=== PATIENT | female | born 1940 | race Caucasian/White ===

== ENCOUNTER 2017-01-27 13:49 | Emergency (ER) | payer MEDICARE, SELFPAY ==
[~2017-01-27 13:49] MED LIST: ACCU-CHEK1 EAC1 MC; ADVAIR 100-501 EACH INH; ALBUTEROL IN200 PUFF INH; ALBUTEROL0.63 MG/3 INH; ALBUTEROL0.63 MG/3 NEB; ALBUTEROL2.5 MG/3 M IH; ALLERGY10 MG PO; AMBIEN10 MG PO; AMOXICILLIN500 MG PO; ARICEPT10 MG PO; ARICEPT23 MG PO; ARICEPT5 MG PO; AROMASIN25 MG PO; ATROVENT2.5 ML NEB; BACTRIM 400-801 EACH PO; CARAFATE1 GM PO; CARDIZEM30 MG PO; CEFPROZIL500 MG PO; CETIRIZINE HCL10 MG PO; CHILDRENS CHEWA81 MG PO; CLOPIDOGREL75 MG PO; COLACE100 MG PO; COZAAR100 MG PO; DILTIAZEM 12HR90 MG PO; DONEPEZIL HCL10 MG PO; DULERA 200 MCG8.8 GM INH; DUONEB 2.5-0.5MG3 ML NEB; FEOSOL325 MG PO; FERROUS SULFAT325 MG PO; FISH OIL 1,0001 EAC1 PO; FISH OIL 1,0001 EAC2 PO; FLAGYL500 MG PO; FOLIC ACID1 MG PO; GENTAMICIN SULFA5 ML OP; GLUCOPHAGE500 MG PO; HYDRALAZINE HCL10 MG PO; HYDROCODON-ACE1 EAC2 PO; HYDROCODON-ACE1 EAC6 PO; K-DUR20 MEQ PO; LAMISIL250 MG PO; LASIX20 MG PO; LASIX40 MG PO; LEVAQUIN500 MG PO; LEVAQUIN750 MG PO; LIDODERM700 MG TP; LYRICA200 MG PO; MAGOX 400400 MG PO; NAMENDA XR21 MG PO; NAMENDA XR28 MG PO; NAMENDA10 MG PO; NEO OP; NITROQUICK0.4 MG SL; OMEGA 3 1,0001 EACH PO; ONDANSETRON HCL4 MG PO; OXYCODON-ACETA1 EAC1 PO; OXYCODONE HCL5 MG PO; OXYCODONE-ACET1 EACH PO; PEPCID20 MG PO; PERCOCET 10-321 EACH PO; PLAVIX75 MG PO; POLYMYXIN OP; POTASSIUM CHLO20 ME1 PO; PRILOSEC20 MG PO; RESTASIS1 EACH OP; RESTORIL15 MG PO; SULF-PRED 10-0.25 ML OP; SULFAMETHOXAZO1 EACH PO; SYNTHROID50 MCG PO; TERBINAFINE HC250 MG PO; TYLENOL325 M1 PO; ULTRAM50 MG PO; VALIUM5 MG PO; VISTARIL50 MG PO; VOLTAREN100 GM TOP; VOLTAREN100 GM TP; ZANAFLEX4 MG PO; ZEBETA5 MG PO; ZOCOR40 MG PO; ZOLOFT100 MG PO; ZYRTEC10 MG PO; [UNRECOGNIZED DRUG - OTHER] OP
[2017-01-27 15:32] LABS: ARTERIAL BLD GAS O2 SATURATION 97.8 % (94-98); ARTERIAL BLOOD GAS HCO3 27.5 mmol/L (22-26); ARTERIAL BLOOD GAS pH 7.41 (7.35-7.45)
[2017-01-27 15:33] LABS: BASO % 0.2 % (0.1-1.2); EOS # 0.1 10_X3_uL (0.0-0.4); EOS % 0.6 % (0.7-5.8); GRAN # 9.4 10_X3_uL (1.6-6.1); GRAN % 75.3 % (34.0-71.1); HEMATOCRIT 41.4 % (34-45); LYMPH % 15.7 % (19.3-51.7); MEAN CORPUSCULAR HEMOGLOBIN 29.1 pg (27.0-33.0); MEAN CORPUSCULAR HGB CONC 33.8 g/dL (32.0-36.0); MEAN CORPUSCULAR VOLUME 86.1 fL (79-95); MEAN PLATELET VOLUME 10.4 fl (7.5-11.5); MONO % 8.2 % (4.7-12.5); PLATELET COUNT 194 x10_3/uL (182-369); RED BLOOD COUNT 4.81 x10_6/uL (3.9-5.2); WHITE BLOOD COUNT 12.5 x10_3/uL (4.0-10.0)
[2017-01-27 15:50] LABS: BILIRUBIN,TOTAL 0.19 mg/dL (0.0-1.0); CALCIUM 9.9 mg/dL (8.7-10.7); CREATININE 1.1 mg/dL (0.6-1.3); TOTAL PROTEIN 7.2 gm/dL (6.4-8.2)
== END 2017-01-27 18:19 | disposition home or self-care (01) ==
LOC: EDSTATUS 13:49 → ER 13:49
PROVIDERS: Internal Medicine
DX: J44.9 Chronic obstructive pulmonary disease, unspecified (principal); R05 Cough; R06.02 Shortness of breath; G89.29 Other chronic pain; M54.2 Cervicalgia; Z79.899 Other long term (current) drug therapy; I50.9 Heart failure, unspecified; E07.9 Disorder of thyroid, unspecified
CPT/HCPCS: 36415; 36600; 71010; 80053; 80307; 82550; 82553; 82803; 83880; 85025; 93005; 96372; 96374; 99070; 99284; 99284-25

== ENCOUNTER 2017-02-08 14:06 | Inpatient (IN) | payer MEDICARE, SELFPAY ==
[~2017-02-08] VITALS: Ht 167.6 cm; Wt 92.0 kg
[2017-02-08 15:20] LABS: HEMATOCRIT 40.2 % (34-45); HEMOGLOBIN 13.5 g/dL (11.2-15.7); MEAN CORPUSCULAR HEMOGLOBIN 28.4 pg (27.0-33.0); MEAN CORPUSCULAR HGB CONC 33.6 g/dL (32.0-36.0); MEAN CORPUSCULAR VOLUME 84.6 fL (79-95); MEAN PLATELET VOLUME 10.5 fl (7.5-11.5); RED BLOOD COUNT 4.75 x10_6/uL (3.9-5.2); RED CELL DISTRIBUTION WIDTH 13.5 % (11.7-14.4); WHITE BLOOD COUNT 13.3 x10_3/uL (4.0-10.0)
[2017-02-08 15:39] LABS: ALBUMIN 3.9 gm/dL (3.4-5.0); ALKALINE PHOSPHATASE 78 U/L (50-136); ALT/SGPT 18 U/L (3.5-33.9); AST/SGOT 17 U/L (7.04-26.96); BILIRUBIN,TOTAL 0.18 mg/dL (0.0-1.0); BLOOD UREA NITROGEN 21 mg/dL (7-18); CALCIUM 9.7 mg/dL (8.7-10.7); CARBON DIOXIDE 27 mmol/L (21-32); CREATININE 1.2 mg/dL (0.6-1.3); GLUCOSE,RANDOM 134 mg/dL (70-99); POTASSIUM 3.7 mmol/L (3.5-5.1); SODIUM 139 mmol/L (136-145); TOTAL PROTEIN 6.9 gm/dL (6.4-8.2)
[2017-02-09 13:13] LABS: URINE BILIRUBIN NEGATIVE (NEGATIVE); URINE BLOOD TRACE (NEGATIVE); URINE GLUCOSE (UA) NORMAL (NORMAL); URINE KETONE NEGATIVE (NEGATIVE); URINE LEUKOCYTE ESTERASE 1+ (NEGATIVE); URINE NITRATE NEGATIVE (NEGATIVE); URINE PROTEIN TRACE (NEGATIVE); UROBILINOGEN NORMAL mg/dL (<1.0)
[2017-02-09 13:50] LABS: URINE BACTERIA 2+ (NONE SEEN); URINE RBC 0-5 /[HPF] (0-2); URINE SQUAMOUS EPITHELIAL CELL 0-10 /[HPF] (NONE SEEN)
[2017-02-10 06:48] LABS: HEMATOCRIT 39.9 % (34-45); HEMOGLOBIN 13.6 g/dL (11.2-15.7); MEAN CORPUSCULAR HEMOGLOBIN 28.8 pg (27.0-33.0); MEAN CORPUSCULAR HGB CONC 34.1 g/dL (32.0-36.0); MEAN CORPUSCULAR VOLUME 84.4 fL (79-95); MEAN PLATELET VOLUME 10.7 fl (7.5-11.5); RED BLOOD COUNT 4.73 x10_6/uL (3.9-5.2); RED CELL DISTRIBUTION WIDTH 13.6 % (11.7-14.4); WHITE BLOOD COUNT 14.1 x10_3/uL (4.0-10.0)
[2017-02-10 07:03] LABS: BILIRUBIN,TOTAL 0.17 mg/dL (0.0-1.0); CALCIUM 10.1 mg/dL (8.7-10.7); CREATININE 1.3 mg/dL (0.6-1.3); POTASSIUM 3.7 mmol/L (3.5-5.1); TOTAL PROTEIN 7.3 gm/dL (6.4-8.2)
[2017-02-11 06:54] LABS: HEMATOCRIT 34.8 % (34-45); HEMOGLOBIN 11.6 g/dL (11.2-15.7); MEAN CORPUSCULAR HEMOGLOBIN 28.6 pg (27.0-33.0); MEAN CORPUSCULAR HGB CONC 33.3 g/dL (32.0-36.0); MEAN CORPUSCULAR VOLUME 85.9 fL (79-95); RED BLOOD COUNT 4.05 x10_6/uL (3.9-5.2); RED CELL DISTRIBUTION WIDTH 13.4 % (11.7-14.4); WHITE BLOOD COUNT 14.3 x10_3/uL (4.0-10.0)
[2017-02-11 07:03] LABS: CALCIUM 9.3 mg/dL (8.7-10.7); CREATININE 1.3 mg/dL (0.6-1.3); POTASSIUM 4.7 mmol/L (3.5-5.1)
[2017-02-12 06:55] LABS: HEMATOCRIT 35.2 % (34-45); HEMOGLOBIN 11.6 g/dL (11.2-15.7); MEAN CORPUSCULAR HEMOGLOBIN 28.6 pg (27.0-33.0); MEAN CORPUSCULAR VOLUME 86.9 fL (79-95); MEAN PLATELET VOLUME 10.9 fl (7.5-11.5); RED BLOOD COUNT 4.05 x10_6/uL (3.9-5.2); RED CELL DISTRIBUTION WIDTH 13.9 % (11.7-14.4)
[2017-02-12 07:13] LABS: ALBUMIN 3.3 gm/dL (3.4-5.0); ALKALINE PHOSPHATASE 83 U/L (50-136); ALT/SGPT 27 U/L (3.5-33.9); AST/SGOT 39 U/L (7.04-26.96); BLOOD UREA NITROGEN 26 mg/dL (7-18); CALCIUM 9.5 mg/dL (8.7-10.7); CARBON DIOXIDE 30 mmol/L (21-32); GLUCOSE,RANDOM 111 mg/dL (70-99); POTASSIUM 4.3 mmol/L (3.5-5.1); SODIUM 144 mmol/L (136-145); TOTAL PROTEIN 6.2 gm/dL (6.4-8.2)
[2017-02-12 07:20] LABS: BILIRUBIN,TOTAL < 0.15 mg/dL (0.0-1.0)
[2017-02-13 06:51] LABS: HEMATOCRIT 34.9 % (34-45); HEMOGLOBIN 11.5 g/dL (11.2-15.7); MEAN CORPUSCULAR HEMOGLOBIN 28.7 pg (27.0-33.0); MEAN PLATELET VOLUME 10.8 fl (7.5-11.5); RED BLOOD COUNT 4.01 x10_6/uL (3.9-5.2); RED CELL DISTRIBUTION WIDTH 13.7 % (11.7-14.4); WHITE BLOOD COUNT 11.7 x10_3/uL (4.0-10.0)
[2017-02-13 07:17] LABS: BLOOD UREA NITROGEN 25 mg/dL (7-18); CALCIUM 9.8 mg/dL (8.7-10.7); CARBON DIOXIDE 32 mmol/L (21-32); CREATININE 0.9 mg/dL (0.6-1.3); GLUCOSE,RANDOM 103 mg/dL (70-99); POTASSIUM 4.2 mmol/L (3.5-5.1); SODIUM 142 mmol/L (136-145)
== END 2017-02-13 10:39 | disposition swing bed (61) | DRG 190 ==
LOC: MS 14:06
PROVIDERS: ADMIT Family Medicine
PROC: 05H533Z Insertion of Infusion Device into Right Subclavian Vein, Percutaneous Approach (ICD-10-PCS; principal; 2017-02-10)
DX: J44.0 Chronic obstructive pulmonary disease with (acute) lower respiratory infection (principal); J18.9 Pneumonia, unspecified organism; N39.0 Urinary tract infection, site not specified; N12 Tubulo-interstitial nephritis, not specified as acute or chronic; J20.9 Acute bronchitis, unspecified; J44.1 Chronic obstructive pulmonary disease with (acute) exacerbation; E11.9 Type 2 diabetes mellitus without complications; I10 Essential (primary) hypertension; M62.50 Muscle wasting and atrophy, not elsewhere classified, unspecified site; B96.20 Unspecified Escherichia coli [E. coli] as the cause of diseases classified elsewhere; R53.1 Weakness; G40.909 Epilepsy, unspecified, not intractable, without status epilepticus; I25.10 Atherosclerotic heart disease of native coronary artery without angina pectoris; D72.829 Elevated white blood cell count, unspecified; E86.0 Dehydration; B95.7 Other staphylococcus as the cause of diseases classified elsewhere; F41.9 Anxiety disorder, unspecified; K59.00 Constipation, unspecified; K21.9 Gastro-esophageal reflux disease without esophagitis; Z90.710 Acquired absence of both cervix and uterus; Z82.49 Family history of ischemic heart disease and other diseases of the circulatory system; Z88.5 Allergy status to narcotic agent; Z79.02 Long term (current) use of antithrombotics/antiplatelets; Z79.84 Long term (current) use of oral hypoglycemic drugs; Z79.899 Other long term (current) drug therapy; Z95.5 Presence of coronary angioplasty implant and graft; I25.2 Old myocardial infarction; Z87.891 Personal history of nicotine dependence; Z96.653 Presence of artificial knee joint, bilateral; Z90.10 Acquired absence of unspecified breast and nipple; Z80.9 Family history of malignant neoplasm, unspecified; M54.9 Dorsalgia, unspecified
CPT/HCPCS: 36415; 71010; 71250; 80048; 80053; 80061; 80198; 81001; 82962; 83036; 87040; 87086; 87186; 93005; 94640; 94664; 99070; J2704; J2920; J7635

== ENCOUNTER 2017-02-08 14:06 | Observation (INO) | payer MEDICARE, OTHER | END 2017-02-10 14:28 | disposition other institution (70) | LOC: MS 14:06 | PROVIDERS: ADMIT Family Medicine | DX: J44.0 Chronic obstructive pulmonary disease with (acute) lower respiratory infection (principal); J18.9 Pneumonia, unspecified organism; J20.9 Acute bronchitis, unspecified; J44.1 Chronic obstructive pulmonary disease with (acute) exacerbation; N39.0 Urinary tract infection, site not specified; N12 Tubulo-interstitial nephritis, not specified as acute or chronic; E11.9 Type 2 diabetes mellitus without complications; I10 Essential (primary) hypertension; M62.50 Muscle wasting and atrophy, not elsewhere classified, unspecified site; B96.20 Unspecified Escherichia coli [E. coli] as the cause of diseases classified elsewhere; R53.1 Weakness; G40.909 Epilepsy, unspecified, not intractable, without status epilepticus; I25.10 Atherosclerotic heart disease of native coronary artery without angina pectoris; D72.829 Elevated white blood cell count, unspecified; E86.0 Dehydration; F41.9 Anxiety disorder, unspecified; K59.00 Constipation, unspecified; K21.9 Gastro-esophageal reflux disease without esophagitis; M54.9 Dorsalgia, unspecified; Z90.710 Acquired absence of both cervix and uterus; Z82.49 Family history of ischemic heart disease and other diseases of the circulatory system; Z88.5 Allergy status to narcotic agent; Z79.02 Long term (current) use of antithrombotics/antiplatelets; Z79.84 Long term (current) use of oral hypoglycemic drugs; Z79.899 Other long term (current) drug therapy; Z95.5 Presence of coronary angioplasty implant and graft; I25.2 Old myocardial infarction; Z87.891 Personal history of nicotine dependence; Z96.653 Presence of artificial knee joint, bilateral; Z90.10 Acquired absence of unspecified breast and nipple; Z80.9 Family history of malignant neoplasm, unspecified | CPT/HCPCS: 36415; 71250; 80053; 80061; 80198; 81001; 82962; 83036; 87040; 87086; 93005; 94640; 94664; 96365; 96366; 96367; 96375; 96376; 99070; G0378; J2920 ==

== ENCOUNTER 2017-02-13 11:06 | Inpatient (IN) | payer MEDICARE ==
[~2017-02-13] VITALS: Ht 167.6 cm; Wt 92.0 kg
[2017-02-16 07:17] LABS: BLOOD UREA NITROGEN 25 mg/dL (7-18); CALCIUM 9.8 mg/dL (8.7-10.7); CARBON DIOXIDE 30 mmol/L (21-32); CREATININE 0.7 mg/dL (0.6-1.3); GLUCOSE,RANDOM 109 mg/dL (70-99); POTASSIUM 4.1 mmol/L (3.5-5.1); SODIUM 143 mmol/L (136-145)
[2017-02-16 07:19] LABS: HEMOGLOBIN 11.4 g/dL (11.2-15.7); MEAN CORPUSCULAR HEMOGLOBIN 28.2 pg (27.0-33.0); MEAN CORPUSCULAR HGB CONC 32.6 g/dL (32.0-36.0); MEAN CORPUSCULAR VOLUME 86.6 fL (79-95); MEAN PLATELET VOLUME 10.7 fl (7.5-11.5); RED BLOOD COUNT 4.04 x10_6/uL (3.9-5.2); RED CELL DISTRIBUTION WIDTH 13.5 % (11.7-14.4); WHITE BLOOD COUNT 7.8 x10_3/uL (4.0-10.0)
[2017-02-20 07:08] LABS: HEMATOCRIT 35.7 % (34-45); HEMOGLOBIN 11.7 g/dL (11.2-15.7); MEAN CORPUSCULAR HEMOGLOBIN 28.3 pg (27.0-33.0); MEAN CORPUSCULAR HGB CONC 32.8 g/dL (32.0-36.0); MEAN CORPUSCULAR VOLUME 86.4 fL (79-95); MEAN PLATELET VOLUME 10.5 fl (7.5-11.5); RED BLOOD COUNT 4.13 x10_6/uL (3.9-5.2); RED CELL DISTRIBUTION WIDTH 13.6 % (11.7-14.4); WHITE BLOOD COUNT 10.8 x10_3/uL (4.0-10.0)
[2017-02-20 07:09] LABS: BLOOD UREA NITROGEN 29 mg/dL (7-18); CALCIUM 9.8 mg/dL (8.7-10.7); CARBON DIOXIDE 30 mmol/L (21-32); CREATININE 0.8 mg/dL (0.6-1.3); GLUCOSE,RANDOM 107 mg/dL (70-99); POTASSIUM 4.2 mmol/L (3.5-5.1); SODIUM 142 mmol/L (136-145)
== END 2017-02-22 14:08 | disposition home or self-care (01) | DRG 690 ==
LOC: SWING 11:06
PROVIDERS: ADMIT Family Medicine
DX: N39.0 Urinary tract infection, site not specified (principal); J44.0 Chronic obstructive pulmonary disease with (acute) lower respiratory infection; J44.1 Chronic obstructive pulmonary disease with (acute) exacerbation; B96.20 Unspecified Escherichia coli [E. coli] as the cause of diseases classified elsewhere; M62.50 Muscle wasting and atrophy, not elsewhere classified, unspecified site; Z16.24 Resistance to multiple antibiotics; Z79.2 Long term (current) use of antibiotics; Z51.89 Encounter for other specified aftercare; J20.9 Acute bronchitis, unspecified; E11.9 Type 2 diabetes mellitus without complications; I10 Essential (primary) hypertension; R53.1 Weakness; M25.551 Pain in right hip; K59.00 Constipation, unspecified; H53.149 Visual discomfort, unspecified; L29.9 Pruritus, unspecified; Z90.49 Acquired absence of other specified parts of digestive tract; Z90.710 Acquired absence of both cervix and uterus; Z98.890 Other specified postprocedural states; Z82.49 Family history of ischemic heart disease and other diseases of the circulatory system; Z83.3 Family history of diabetes mellitus; Z82.0 Family history of epilepsy and other diseases of the nervous system; Z79.02 Long term (current) use of antithrombotics/antiplatelets; Z79.899 Other long term (current) drug therapy; Z79.84 Long term (current) use of oral hypoglycemic drugs; Z79.52 Long term (current) use of systemic steroids
CPT/HCPCS: 36415; 73502; 80048; 82962; 94640; 97110; 97116; 97530; 97535; 99070; J2930